=== PATIENT | female | born 1940 | race Caucasian/White ===

== ENCOUNTER 2017-07-12 15:20 | Inpatient (IN) ==
--- NOTE | 2017-07-12 17:59 | Internal Med History&Physical ---
Date of Encounter: 07/12/17 Time of Encounter: 17:56 Assessment and Plan (1) NSTEMI (non-ST elevated myocardial infarction) Current visit: Yes Status: Acute Patient this just pain-free now. There is a possibility that patient may have full of heparin drip according to paramedics since the bag was empty and was not placed on a infusion pump. So I will hold off getting any antiplatelet or anticoagulant medications for now until checking PTT. Will start patient on beta blockers Statin. Cardiology consultation. Repeat EKG shows no ST-segment shift. Patient shows no signs of bleeding. Neurologically intact Internal Medicine - H&P: HPI Chief complaint: chest pain History of present illness: Ms. Ivy is a 76 year old female with no history of coronary artery disease presents to the emergency room with a complaining of chest pain. Patient mentioned that approximately 10 AM she developed an episode of retrosternal chest pain radiating to urge all associated with profuse sweating lightheadedness nausea. These symptom lasted for approximately 2 hours. She attempted to come to our emergency room however she had to walk a long way from the [facility] to the ER she could not do so her friends to cover to an outside emergency room. Patient was chest pain free during my interview. Patient denies any cough expectoration fever chills. No prior cardiac history Past Med Surg Social Fam HX - Past Medical History Medical history: other (denies any medical history) Psychiatric history: no psych history - Past Surgical History Surgical History: no surgical history - Social History Smoking Status: Never smoker Smokeless Tobacco Status: No Alcohol use: none Drug use: none Internal Medicine - H&P: Meds Azithromycin [Azithromycin 6-Tab Pack] 250 mg PO DAILY #6 tab 09/08/15 [Rx] DiphenhydraMINE [Benadryl] 25 mg PO Q6HR #20 capsule 09/08/15 [Rx] methylPREDNISolone [Medrol] 4 mg PO DAILY 7 Days tablet 09/08/15 [Rx] Mupirocin [Bactroban Oint] 1 appl TP BID #1 tube 12/06/15 [Rx] Sulfamethoxazole/Trimeth DS [Bactrim DS] 1 each PO BID #14 tablet 12/06/15 [Rx] traMADol [Ultram] 50 mg PO QID PRN #16 tablet 12/06/15 [Rx] Albuterol Neb [AccuNeb] 1.25 mg IH Q6H PRN #50 units 06/17/16 [Rx] Amoxicillin [Amoxil] 500 mg PO TID #30 capsule 06/17/16 [Rx] Ipratropium Neb [Atrovent Neb] 0.5 mg IH Q6HR PRN #50 vial.neb 06/17/16 [Rx] Nebulizer Accessories [Pillow Mask] 1 each MC PRN PRN #1 each 06/17/16 [Rx] Promethazine/Dextromethorphan [Promethazine-Dm Syrup] 5 ml PO Q4H PRN #120 ml [Rx] predniSONE [Prednisone] 20 mg PO DAILY #5 tablet 06/17/16 [Rx] Nitrofurantoin Monohyd/M-Cryst [Macrobid 100 mg Capsule] 100 mg PO BID #10 capsule 06/02/17 [Rx] Phenazopyridine HCl [Pyridium] 200 mg PO TIDAC #6 tab 06/02/17 [Rx] 3 Allergy/AdvReac Type Severity Reaction Status Date / Time Sulfa (Sulfonamide Allergy Rash Verified 12/10/15 13:03 Antibiotics) All Systems PM: A 10-system review of systems was performed and is negative for pertinent findings except as documented above in the HPI. Review of systems: 10 point review of systems is negative except for HPI - Constitutional Vitals: Temp Pulse Resp BP Pulse Ox 98.3 F 80 16 162/78 96 07/12/17 17:22 07/12/17 17:22 07/12/17 17:22 07/12/17 17:22 07/12/17 17:22 Exam: Gen.: patient is alert oriented times 3 cardiac: normal S1 S2 no additional sounds or murmurs chest: no active wheezing or bronchial breathing abdomen soft nontender nondistended normal bowel sounds lower extremity no swelling. Neuro: no new focal deficits
[2017-07-12 19:14] LABS: Activated Partial Thrombo Time > 360.0 Seconds (26.0-36.0)
[2017-07-12 19:26] LABS: Heparin anti-factor XA UFH 4.67 IU/mL (0.30-0.70)
--- NOTE | 2017-07-12 19:30 | Discharge Summary ---
Date of Encounter: 07/12/17 Time of Encounter: 19:28 - Discharge Diagnosis (1) NSTEMI (non-ST elevated myocardial infarction) Priority: Primary Status: Acute Comments: NSTEMI type 1 due to demand ischemia - Discharge Medications Home Medications: Azithromycin [Azithromycin 6-Tab Pack] 250 mg PO DAILY #6 tab 09/08/15 [Rx] DiphenhydraMINE [Benadryl] 25 mg PO Q6HR #20 capsule 09/08/15 [Rx] methylPREDNISolone [Medrol] 4 mg PO DAILY 7 Days tablet 09/08/15 [Rx] Mupirocin [Bactroban Oint] 1 appl TP BID #1 tube 12/06/15 [Rx] Sulfamethoxazole/Trimeth DS [Bactrim DS] 1 each PO BID #14 tablet 12/06/15 [Rx] traMADol [Ultram] 50 mg PO QID PRN #16 tablet 12/06/15 [Rx] Albuterol Neb [AccuNeb] 1.25 mg IH Q6H PRN #50 units 06/17/16 [Rx] Amoxicillin [Amoxil] 500 mg PO TID #30 capsule 06/17/16 [Rx] Ipratropium Neb [Atrovent Neb] 0.5 mg IH Q6HR PRN #50 vial.neb 06/17/16 [Rx] Nebulizer Accessories [Pillow Mask] 1 each MC PRN PRN #1 each 06/17/16 [Rx] Promethazine/Dextromethorphan [Promethazine-Dm Syrup] 5 ml PO Q4H PRN #120 ml [Rx] predniSONE [Prednisone] 20 mg PO DAILY #5 tablet 06/17/16 [Rx] Nitrofurantoin Monohyd/M-Cryst [Macrobid 100 mg Capsule] 100 mg PO BID #10 capsule 06/02/17 [Rx] Phenazopyridine HCl [Pyridium] 200 mg PO TIDAC #6 tab 06/02/17 [Rx] Allergies/Adverse Reactions: 3 Allergy/AdvReac Type Severity Reaction Status Date / Time Sulfa (Sulfonamide Allergy Rash Verified 12/10/15 13:03 Antibiotics) Procedures/tests Complete & Pending: Procedures Performed prior 72 hours Category Date Time Status EKG [ECG 12 lead ECG] [ECG] Stat Y 07/12/17 17:17 Ordered EV echocardiogram Routine Y 07/12/17 17:55 Ordered Date of admission: 07/12/17 16:52 Primary care physician: Elle Hall Consults: 07/12/17 17:48 Consult to Cardiology [CONS] Routine Comment: Consulting Provider: Gregg Massey Reason for Consult: NSTEMI Call Completed: Yes - Patient Status Disposition: Left Against Medical Advice - Discharge Instructions Follow Up With: Elle Hall MD [Primary Care Provider] - Interval History: Ms. Ivy is a 76 year old female with no history of coronary artery disease presents to the emergency room with a complaining of chest pain. Patient mentioned that approximately 10 AM she developed an episode of retrosternal chest pain radiating to urge all associated with profuse sweating lightheadedness nausea. These symptom lasted for approximately 2 hours. She attempted to come to our emergency room however she had to walk a long way from the garage to the ER she could not do so her friends to cover to an outside emergency room. Patient was chest pain free during my interview. Patient denies any cough expectoration fever chills. No prior cardiac history I was called by the nurse is the patient wanted to leave against medical advice. I discussed with the patient that she had probably received duffel bag (about 25,000 units. Her PTT was more than 360 and she is aware of that. I discussed with her the risk of bleeding, even spontaneously. Patient insisted that she wants to leave. I gave her the option of transfer to another facility and she still refused. Patient signed against medical advice. Hospital course: Ms. Ivy is a 76 year old female - Time Spent with Patient Total time spent providing and/or coordinating discharge services: - Constitutional Vitals: Temp Pulse Resp BP Pulse Ox 98.3 F 80 16 162/78 96 07/12/17 17:22 07/12/17 17:22 07/12/17 17:22 07/12/17 17:22 07/12/17 17:22 Exam: I was unable to examine the patient on discharge.
== END 2017-07-12 19:20 | disposition left against medical advice (07) | DRG 282 ==
LOC: 2NENU
PROVIDERS: ADMIT Hospitalist; ATTEND Internal Medicine

== ENCOUNTER 2020-10-25 22:15 | Inpatient (IN) ==
[2020-10-25] MEDS ORDERED: Isovue-370 500 ML BOTTLE IVP ONE (22:23)
[2020-10-25 22:35] LABS: Basophils % 0.3 %; Eosinophils # 0.1 K/mcL (0.0-0.6); Eosinophils % 0.9 %; Hematocrit 37.4 % (35.3-44.9); Hemoglobin 12.2 g/dL (11.5-15.4); Immature Granulocytes % 0.5 % (0-4); Lymphocytes % 19.4 %; Mean Corpuscular HGB Conc 32.6 g/dL (31.6-35.5); Mean Corpuscular Hemoglobin 30.6 pg (28.0-33.3); Mean Corpuscular Volume 93.7 fL (83.0-100.0); Mean Platelet Volume 9.3 fL (9.4-12.4); Monocytes # 0.6 K/mcL (0.0-1.3); Monocytes % 6.2 %; Neutrophils # 7.5 K/mcL (1.6-8.9); Platelet Count 264 K/mcL (140-400); Red Blood Count 3.99 M/mcL (3.82-4.97); Segmented Neutrophils % 72.7 %; White Blood Count 10.2 K/mcL (4.3-11.1)
[2020-10-25 22:58] LABS: Alanine Aminotransferase 12 Units/L (7-52); Albumin 3.9 g/dL (3.5-5.7); Albumin/Globulin Ratio 1.2 (1.1-2.2); Alkaline Phosphatase 76 Units/L (34-104); Aspartate Amino Transferase 16 Units/L (13-39); BUN/Creatinine Ratio 15 (6-26); Bilirubin,Direct 0.1 mg/dL (0.0-0.2); Bilirubin,Indirect 0.6 mg/dL (0.0-1.0); Bilirubin,Total 0.7 mg/dL (0.3-1.0); Blood Urea Nitrogen 11 mg/dL (8-23); Calcium 9.2 mg/dL (8.6-10.3); Carbon Dioxide 27 mEq/L (23-29); Chloride 102 mEq/L (98-107); Globulin 3.3 g/dL (2.4-3.5); Glucose 121 mg/dL (70-105); Lipase 12 Units/L (11-82); Osmolality,Calculated 283 (280-300); Potassium 3.6 mEq/L (3.5-5.1); Sodium 136 mEq/L (136-145); Total Protein 7.2 g/dL (6.4-8.9); eGFR For African Americans > 60 (> 60); eGFR For Non-African Americans > 60 (> 60)
[2020-10-25 23:44] LABS: Bilirubin,Urine Negative (Negative); Blood,Urine Negative (Negative); Clarity,Urine Clear (Clear); Color,Urine Colorless (Yellow); Glucose,Urine (UA) Normal (Normal); Ketones,Urine Negative (Negative); Leukocyte Esterase,Urine Moderate (Negative); Mucus,Urine Few per lpf (None-Few); Nitrite,Urine Negative (Negative); Protein,Urine Negative (Neg-Trace); RBC,Urine 0-3 per hpf (0-3); Specific Gravity,Urine 1.019 (1.010-1.025); Urobilinogen,Urine Normal (Normal)
[2020-10-26] MEDS ORDERED: cefTRIAXone 1,000 MG in 0.9 % Sodium Chloride Mini Bag 100 ML IVPB ONE (00:19)
[2020-10-26] MEDS ORDERED: Ondansetron 4 MG/2 ML VIAL IVP PRN (00:35)
[2020-10-26] MEDS ORDERED: Acetaminophen 325 MG TABLET PO PRN (00:35)
[2020-10-26] MEDS ORDERED: *HR* HYDROcodone/Acet 5/325 mg TABLET PO PRN (00:35)
[2020-10-26] MEDS ORDERED: Naloxone 0.4 MG/ML INJ IVP PRN (00:35)
[2020-10-26] MEDS: Sennosides/Docusate Sodium TABLET PO SCH ×3 (02:12→20:00)
[2020-10-26] MEDS: Ringers Solution, Lactated 1,000 ML IVC SCH ×2 (02:12→09:22)
[2020-10-26] MEDS ORDERED: Gabapentin 100 MG CAPSULE PO ONE (02:18)
[2020-10-26 03:42] LABS: Basophils % 0.3 %; Eosinophils % 0.3 %; Hematocrit 39.7 % (35.3-44.9); Hemoglobin 12.7 g/dL (11.5-15.4); Immature Granulocytes % 0.4 % (0-4); Lymphocytes # 1.9 K/mcL (0.6-4.6); Lymphocytes % 16.9 %; Mean Corpuscular Volume 93.9 fL (83.0-100.0); Mean Platelet Volume 9.5 fL (9.4-12.4); Monocytes # 0.7 K/mcL (0.0-1.3); Monocytes % 5.7 %; Neutrophils # 8.8 K/mcL (1.6-8.9); Platelet Count 295 K/mcL (140-400); Red Blood Count 4.23 M/mcL (3.82-4.97); Red Cell Distribution Width 14.2 % (11.5-14.5); Segmented Neutrophils % 76.4 %; White Blood Count 11.5 K/mcL (4.3-11.1)
[2020-10-26 04:04] LABS: BUN/Creatinine Ratio 13 (6-26); Blood Urea Nitrogen 9 mg/dL (8-23); Calcium 9.3 mg/dL (8.6-10.3); Carbon Dioxide 27 mEq/L (23-29); Chloride 101 mEq/L (98-107); Chol/HDL Ratio 2.8 (0-4.9); Cholesterol 153 mg/dL (< 200); Glucose 120 mg/dL (70-105); HDL Cholesterol 55 mg/dL (40-59); LDL Cholesterol,Calculated 89 mg/dL (< 100); Osmolality,Calculated 284 (280-300); Potassium 3.7 mEq/L (3.5-5.1); Sodium 137 mEq/L (136-145); Triglycerides 44 mg/dL (< 150); eGFR For African Americans > 60 (> 60); eGFR For Non-African Americans > 60 (> 60)
[2020-10-26 04:14] LABS: Thyroid Stimulating Hormone 2.137 mcIU/mL (0.340-5.600)
[2020-10-26] MEDS: Cyanocobalamin (B-12) 1,000 MCG/ML VIAL SQ SCH (15:10)
[2020-10-27 05:54] LABS: Basophils # 0.1 K/mcL (0.0-0.2); Basophils % 0.5 %; Eosinophils # 0.1 K/mcL (0.0-0.6); Eosinophils % 1.3 %; Hematocrit 37.2 % (35.3-44.9); Hemoglobin 12.1 g/dL (11.5-15.4); Immature Granulocytes % 0.4 % (0-4); Lymphocytes % 21.3 %; Mean Corpuscular HGB Conc 32.5 g/dL (31.6-35.5); Mean Corpuscular Hemoglobin 30.4 pg (28.0-33.3); Mean Corpuscular Volume 93.5 fL (83.0-100.0); Mean Platelet Volume 9.8 fL (9.4-12.4); Monocytes # 0.6 K/mcL (0.0-1.3); Monocytes % 6.4 %; Neutrophils # 6.5 K/mcL (1.6-8.9); Platelet Count 280 K/mcL (140-400); Red Blood Count 3.98 M/mcL (3.82-4.97); Red Cell Distribution Width 13.9 % (11.5-14.5); Segmented Neutrophils % 70.1 %; White Blood Count 9.3 K/mcL (4.3-11.1)
[2020-10-27 05:56] LABS: BUN/Creatinine Ratio 13 (6-26); Blood Urea Nitrogen 9 mg/dL (8-23); Calcium 9.3 mg/dL (8.6-10.3); Carbon Dioxide 26 mEq/L (23-29); Chloride 100 mEq/L (98-107); Glucose 113 mg/dL (70-105); Osmolality,Calculated 277 (280-300); Potassium 3.8 mEq/L (3.5-5.1); Sodium 134 mEq/L (136-145); eGFR For African Americans > 60 (> 60); eGFR For Non-African Americans > 60 (> 60)
[2020-10-27] MEDS: Cyanocobalamin (B-12) 1,000 MCG/ML VIAL SQ SCH (08:40)
[2020-10-27] MEDS: Sennosides/Docusate Sodium TABLET PO SCH (08:40)
[2020-10-27 10:56] VITALS: BP 135/70
== END 2020-10-27 14:40 | disposition home or self-care (01) | DRG 552 ==
LOC: EMEROOARM 22:15 → 3NENU 22:15 → SUATTDRO 10-26 00:49 → 3NENU 10-26 01:32 → 3ANU 10-26 06:39
PROVIDERS: ADMIT Internal Medicine; ATTEND Internal Medicine

== ENCOUNTER 2020-10-31 23:53 | Inpatient (IN) ==
[2020-11-01] MEDS ORDERED: *HR* FentaNYL (PF) 100 MCG/2 ML VIAL IVP ONE ×2 (01:59→06:49)
[2020-11-01 03:29] LABS: BUN/Creatinine Ratio 11 (6-26); Blood Urea Nitrogen 7 mg/dL (8-23); Calcium 9.2 mg/dL (8.6-10.3); Carbon Dioxide 28 mEq/L (23-29); Chloride 101 mEq/L (98-107); Glucose 115 mg/dL (70-105); Osmolality,Calculated 281 (280-300); Potassium 3.6 mEq/L (3.5-5.1); Sodium 136 mEq/L (136-145); eGFR For African Americans > 60 (> 60); eGFR For Non-African Americans > 60 (> 60)
[2020-11-01 05:11] LABS: Basophils % 0.4 %; Eosinophils # 0.1 K/mcL (0.0-0.6); Eosinophils % 0.8 %; Hematocrit 37.2 % (35.3-44.9); Hemoglobin 11.9 g/dL (11.5-15.4); Immature Granulocytes % 0.4 % (0-4); Lymphocytes # 2.4 K/mcL (0.6-4.6); Lymphocytes % 21.6 %; Mean Corpuscular Hemoglobin 30.4 pg (28.0-33.3); Mean Corpuscular Volume 94.9 fL (83.0-100.0); Mean Platelet Volume 9.7 fL (9.4-12.4); Monocytes # 0.8 K/mcL (0.0-1.3); Monocytes % 6.9 %; Neutrophils # 7.8 K/mcL (1.6-8.9); Platelet Count 280 K/mcL (140-400); Red Blood Count 3.92 M/mcL (3.82-4.97); Red Cell Distribution Width 13.8 % (11.5-14.5); Segmented Neutrophils % 69.9 %; White Blood Count 11.1 K/mcL (4.3-11.1)
[2020-11-01 05:39] LABS: Bacteria,Urine Few per hpf (None-Few); Bilirubin,Urine Negative (Negative); Blood,Urine Negative (Negative); Clarity,Urine Clear (Clear); Color,Urine Light-Yellow (Yellow); Glucose,Urine (UA) Normal (Normal); Ketones,Urine Negative (Negative); Leukocyte Esterase,Urine Trace (Negative); Mucus,Urine Few per lpf (None-Few); Nitrite,Urine Negative (Negative); PH,Urine 6.5 pH Units (5.0-8.0); Protein,Urine Negative (Neg-Trace); RBC,Urine 0-3 per hpf (0-3); Specific Gravity,Urine 1.011 (1.010-1.025); Squamous Epithelial Cell,Urine Few per hpf (None-Few)
[2020-11-01] MEDS ORDERED: Naloxone 0.4 MG/ML INJ IVP PRN (08:23)
[2020-11-01] MEDS ORDERED: Acetaminophen 325 MG TABLET PO PRN (08:23)
[2020-11-01] MEDS ORDERED: Sennosides/Docusate Sodium TABLET PO PRN (08:27)
[2020-11-01] MEDS ORDERED: Haloperidol Lactate 5 MG/ML VIAL IVP ONE (17:53)
[2020-11-01] MEDS ORDERED: Ketorolac 30 MG/ML VIAL IVP ONE (18:12)
[2020-11-01] MEDS: *HR* Heparin 5,000 UNIT/ML VIAL SQ SCH (18:43)
[2020-11-02 01:34] LABS: Hematocrit 36.9 % (35.3-44.9); Hemoglobin 12.1 g/dL (11.5-15.4); Mean Corpuscular HGB Conc 32.8 g/dL (31.6-35.5); Mean Corpuscular Hemoglobin 30.5 pg (28.0-33.3); Mean Corpuscular Volume 92.9 fL (83.0-100.0); Mean Platelet Volume 9.5 fL (9.4-12.4); Platelet Count 250 K/mcL (140-400); Red Blood Count 3.97 M/mcL (3.82-4.97); Red Cell Distribution Width 13.7 % (11.5-14.5); White Blood Count 8.1 K/mcL (4.3-11.1)
[2020-11-02 01:57] LABS: BUN/Creatinine Ratio 17 (6-26); Blood Urea Nitrogen 11 mg/dL (8-23); Calcium 8.7 mg/dL (8.6-10.3); Carbon Dioxide 29 mEq/L (23-29); Chloride 101 mEq/L (98-107); Glucose 107 mg/dL (70-105); Osmolality,Calculated 282 (280-300); Potassium 3.7 mEq/L (3.5-5.1); Sodium 136 mEq/L (136-145); eGFR For African Americans > 60 (> 60); eGFR For Non-African Americans > 60 (> 60)
[2020-11-02] MEDS: *HR* Heparin 5,000 UNIT/ML VIAL SQ SCH (05:31)
[2020-11-02] MEDS ORDERED: Baclofen 10 MG TABLET PO PRN (09:07)
[2020-11-02 11:30] VITALS: BP 125/69
[2020-11-03] MEDS ORDERED: Cyanocobalamin (B-12) 1,000 MCG TABLET PO SCH (09:00)
== END 2020-11-02 15:00 | disposition left against medical advice (07) | DRG 552 ==
LOC: 2ANU 23:53 → EMEROOARM 23:53 → 2ANU 11-01 08:30 → SUATTDRO 11-01 09:42
PROVIDERS: ADMIT Internal Medicine; ATTEND General Practice

== ENCOUNTER 2022-01-23 09:33 | Observation (INO) ==
[2022-01-23 11:25] LABS: Basophils % 0.2 %; Eosinophils % 0.2 %; Hematocrit 36.2 % (35.3-44.9); Immature Granulocytes % 0.3 % (0-4); Lymphocytes # 1.8 K/mcL (0.6-4.6); Lymphocytes % 18.1 %; Mean Corpuscular HGB Conc 33.1 g/dL (31.6-35.5); Mean Corpuscular Hemoglobin 31.4 pg (28.0-33.3); Mean Corpuscular Volume 94.8 fL (83.0-100.0); Monocytes # 0.7 K/mcL (0.0-1.3); Monocytes % 6.7 %; Neutrophils # 7.4 K/mcL (1.6-8.9); Platelet Count 241 K/mcL (140-400); Red Blood Count 3.82 M/mcL (3.82-4.97); Red Cell Distribution Width 14.6 % (11.5-14.5); Segmented Neutrophils % 74.5 %
[2022-01-23] MEDS ORDERED: Furosemide 40 MG/4 ML VIAL IVP ONE (11:35)
[2022-01-23] MEDS ORDERED: Nitroglycerin 0.4 MG TAB.SUBL SL STA (11:35)
[2022-01-23 11:59] LABS: BUN/Creatinine Ratio 13 (6-26); Blood Urea Nitrogen 10 mg/dL (8-23); Calcium 8.8 mg/dL (8.6-10.3); Carbon Dioxide 27 mEq/L (23-29); Chloride 102 mEq/L (98-107); Glucose 112 mg/dL (70-105); Osmolality,Calculated 282 (280-300); Potassium 3.6 mEq/L (3.5-5.1); Sodium 136 mEq/L (136-145); Troponin I 0.05 ng/mL (< 0.04); eGFR For African Americans > 60 (> 60); eGFR For Non-African Americans > 60 (> 60)
[2022-01-23] MEDS ORDERED: Naloxone 0.4 MG/ML INJ IVP PRN (13:13)
[2022-01-23] MEDS ORDERED: Acetaminophen 325 MG TABLET PO PRN (13:13)
[2022-01-23] MEDS ORDERED: Ondansetron 4 MG/2 ML VIAL IVP PRN (13:13)
[2022-01-23] MEDS ORDERED: Perflutren Lipid Microsphere 1.3 ML in 0.9 % Sodium Chloride 8.7 ML IVP PRN (13:21)
[2022-01-23 13:59] LABS: Influenza A PCR Negative (Negative); Influenza B PCR Negative (Negative); Resp. Syncytial Virus PCR Negative (Negative)
[2022-01-23 14:14] LABS: SARS-CoV-2 by PCR (In House) Negative (Negative)
[2022-01-23] MEDS ORDERED: Furosemide 20 MG/2 ML VIAL IVP ONE (17:00)
[2022-01-23 17:08] VITALS: BP 124/85; PULSE 78; TEMP 98; O2SAT 96
[2022-01-24] MEDS ORDERED: *HR* Enoxaparin 40 MG/0.4 ML SYRINGE SQ SCH (07:00)
[2022-01-24] MEDS ORDERED: Furosemide 40 MG/4 ML VIAL IVP SCH (09:00)
== END 2022-01-23 17:31 | disposition left against medical advice (07) ==
LOC: 2ANU 09:33 → EMEROOARM 09:33 → 2ANU 14:01
PROVIDERS: ADMIT Pharmacist; ATTEND Pharmacist

== ENCOUNTER 2022-06-06 13:48 | Inpatient (IN) ==
[2022-06-06 14:56] LABS: Basophils % 0.2 %; Eosinophils % 0.3 %; Hematocrit 40.4 % (35.3-44.9); Hemoglobin 13.1 g/dL (11.5-15.4); Immature Granulocytes % 0.4 % (0-4); Lymphocytes # 1.4 K/mcL (0.6-4.6); Lymphocytes % 12.9 %; Mean Corpuscular HGB Conc 32.4 g/dL (31.6-35.5); Mean Corpuscular Hemoglobin 31.6 pg (28.0-33.3); Mean Corpuscular Volume 97.6 fL (83.0-100.0); Mean Platelet Volume 10.2 fL (9.4-12.4); Monocytes # 0.6 K/mcL (0.0-1.3); Neutrophils # 8.5 K/mcL (1.6-8.9); Platelet Count 248 K/mcL (140-400); Red Blood Count 4.14 M/mcL (3.82-4.97); Red Cell Distribution Width 16.2 % (11.5-14.5); Segmented Neutrophils % 80.2 %; White Blood Count 10.6 K/mcL (4.3-11.1)
[2022-06-06 15:17] LABS: Calcium 9.4 mg/dL (8.6-10.3); Potassium 3.5 mEq/L (3.5-5.1)
[2022-06-06 15:18] LABS: Bacteria,Urine Few per hpf (None-Few); Bilirubin,Urine Negative (Negative); Blood,Urine Negative (Negative); Clarity,Urine Clear (Clear); Color,Urine Yellow (Yellow); Glucose,Urine (UA) Normal (Normal); Granular Casts,Urine Few per lpf (None Seen); Hyaline Casts,Urine Many per lpf (None Seen); Ketones,Urine Negative (Negative); Leukocyte Esterase,Urine Large (Negative); Mucus,Urine Few per lpf (None-Few); Nitrite,Urine Negative (Negative); Protein,Urine 100 mg/dL (Neg-Trace); RBC,Urine 0-3 per hpf (0-3); Renal Epithelial Cells,Urine Few per hpf (None-Few); Squamous Epithelial Cell,Urine Few per hpf (None-Few); Transitional Epi Cells,Urine Few per hpf (None-Few); Urobilinogen,Urine Normal (Normal); WBC,Urine 30-50 per hpf (0-3)
[2022-06-06 15:37] LABS: Troponin I 0.38 ng/mL (< 0.04)
[2022-06-06] MEDS ORDERED: cefTRIAXone 1,000 MG in 0.9 % Sodium Chloride 10 ML IVP ONE (16:11)
[2022-06-06] MEDS ORDERED: Iopamidol - 370 500 ML MLS IVP ONE (16:17)
[2022-06-06] MEDS ORDERED: Ondansetron ODT 4 MG TAB.RAPDIS SL PRN (17:01)
[2022-06-06] MEDS ORDERED: Naloxone 0.4 MG/ML INJ IVP PRN (17:01)
[2022-06-06] MEDS ORDERED: Acetaminophen 325 MG TABLET PO PRN (17:01)
[2022-06-06] MEDS: Furosemide 40 MG/4 ML VIAL IVP SCH (23:13)
[2022-06-07 04:11] LABS: Basophils % 0.3 %; Eosinophils # 0.1 K/mcL (0.0-0.6); Hemoglobin 12.8 g/dL (11.5-15.4); Immature Granulocytes % 0.3 % (0-4); Lymphocytes # 1.3 K/mcL (0.6-4.6); Lymphocytes % 12.4 %; Mean Corpuscular HGB Conc 32.8 g/dL (31.6-35.5); Mean Corpuscular Hemoglobin 31.7 pg (28.0-33.3); Mean Corpuscular Volume 96.5 fL (83.0-100.0); Mean Platelet Volume 10.4 fL (9.4-12.4); Monocytes # 0.6 K/mcL (0.0-1.3); Monocytes % 5.6 %; Neutrophils # 8.1 K/mcL (1.6-8.9); Platelet Count 259 K/mcL (140-400); Red Blood Count 4.04 M/mcL (3.82-4.97); Red Cell Distribution Width 16.2 % (11.5-14.5); Segmented Neutrophils % 80.4 %; White Blood Count 10.1 K/mcL (4.3-11.1)
[2022-06-07 04:26] LABS: Calcium 9.3 mg/dL (8.6-10.3); Potassium 3.5 mEq/L (3.5-5.1)
[2022-06-07 04:36] LABS: Troponin I 0.25 ng/mL (< 0.04)
[2022-06-07] MEDS ORDERED: *HR* Heparin 5,000 UNIT/ML VIAL IVP PRN ×2 (08:19)
[2022-06-07] MEDS ORDERED: *HR* Heparin 5,000 UNIT/ML VIAL IVP ONE (08:19)
[2022-06-07 10:37] LABS: Heparin anti-factor XA UFH < 0.04 IU/mL (0.30-0.70); INR 1.4; Prothrombin Time 15.4 Seconds (9.4-12.1)
[2022-06-07] MEDS: Furosemide 40 MG/4 ML VIAL IVP SCH ×2 (10:44→16:55)
[2022-06-07] MEDS: Heparin 25,000UNIT/250ML 1/2NS 25,000 UNIT/250 ML IV.SOLN IVC SCH (10:46)
[2022-06-07] MEDS: cefTRIAXone 1,000 MG in 0.9 % Sodium Chloride 10 ML IVP SCH (13:46)
[2022-06-07] MEDS ORDERED: 0.9 % Sodium Chloride 500 ML IVC ONE (22:22)
[2022-06-08 01:32] LABS: Basophils # 0.1 K/mcL (0.0-0.2); Basophils % 0.5 %; Eosinophils # 0.3 K/mcL (0.0-0.6); Eosinophils % 2.4 %; Hematocrit 40.1 % (35.3-44.9); Immature Granulocytes % 0.4 % (0-4); Lymphocytes # 1.9 K/mcL (0.6-4.6); Lymphocytes % 16.8 %; Mean Corpuscular HGB Conc 32.4 g/dL (31.6-35.5); Mean Corpuscular Hemoglobin 31.5 pg (28.0-33.3); Mean Corpuscular Volume 97.1 fL (83.0-100.0); Mean Platelet Volume 10.5 fL (9.4-12.4); Monocytes # 0.7 K/mcL (0.0-1.3); Monocytes % 5.9 %; Neutrophils # 8.2 K/mcL (1.6-8.9); Platelet Count 243 K/mcL (140-400); Red Blood Count 4.13 M/mcL (3.82-4.97)
[2022-06-08 01:50] LABS: Calcium 8.6 mg/dL (8.6-10.3); Potassium 3.1 mEq/L (3.5-5.1)
[2022-06-08] MEDS ORDERED: Furosemide 40 MG TABLET PO SCH (08:00)
[2022-06-08] MEDS: cefTRIAXone 1,000 MG in 0.9 % Sodium Chloride 10 ML IVP SCH (10:30)
[2022-06-08] MEDS: Heparin 25,000UNIT/250ML 1/2NS 25,000 UNIT/250 ML IV.SOLN IVC SCH (12:05)
[2022-06-08] MEDS: Sennosides/Docusate Sodium TABLET PO PRN ×2 (15:08→21:42)
[2022-06-08] MEDS: polyethylene glycoL 3350 17 GM POWD.PACK PO SCH (15:08)
[2022-06-08] MEDS: Furosemide 40 MG/4 ML VIAL IVP SCH (18:02)
[2022-06-08] MEDS: Melatonin 3 MG TABLET PO PRN (21:42)
[2022-06-09 04:29] LABS: Basophils % 0.3 %; Eosinophils # 0.2 K/mcL (0.0-0.6); Eosinophils % 1.6 %; Hematocrit 39.2 % (35.3-44.9); Hemoglobin 12.7 g/dL (11.5-15.4); Immature Granulocytes % 0.3 % (0-4); Lymphocytes # 1.2 K/mcL (0.6-4.6); Lymphocytes % 13.4 %; Mean Corpuscular HGB Conc 32.4 g/dL (31.6-35.5); Mean Corpuscular Hemoglobin 31.1 pg (28.0-33.3); Mean Corpuscular Volume 96.1 fL (83.0-100.0); Mean Platelet Volume 10.4 fL (9.4-12.4); Monocytes # 0.6 K/mcL (0.0-1.3); Monocytes % 5.9 %; Neutrophils # 7.3 K/mcL (1.6-8.9); Platelet Count 219 K/mcL (140-400); Red Blood Count 4.08 M/mcL (3.82-4.97); Segmented Neutrophils % 78.5 %; White Blood Count 9.3 K/mcL (4.3-11.1)
[2022-06-09 04:49] LABS: Calcium 8.6 mg/dL (8.6-10.3); Potassium 3.2 mEq/L (3.5-5.1)
[2022-06-09] MEDS: cephALEXin 500 MG CAPSULE PO SCH ×2 (09:45→21:55)
[2022-06-09] MEDS: polyethylene glycoL 3350 17 GM POWD.PACK PO SCH (09:45)
[2022-06-09] MEDS: Furosemide 40 MG/4 ML VIAL IVP SCH ×2 (09:59→19:06)
[2022-06-09] MEDS: Heparin 25,000UNIT/250ML 1/2NS 25,000 UNIT/250 ML IV.SOLN IVC SCH (16:06)
[2022-06-09] MEDS: *HR* HYDROcodone/Acet 5/325 mg TABLET PO PRN (16:59)
[2022-06-09] MEDS: *HR* Heparin 5,000 UNIT/ML VIAL SQ SCH (19:05)
[2022-06-09] MEDS: Melatonin 3 MG TABLET PO PRN (21:55)
[2022-06-10 02:57] LABS: Basophils # 0.1 K/mcL (0.0-0.2); Basophils % 0.6 %; Eosinophils # 0.2 K/mcL (0.0-0.6); Hematocrit 39.2 % (35.3-44.9); Hemoglobin 12.6 g/dL (11.5-15.4); Immature Granulocytes % 0.2 % (0-4); Lymphocytes # 1.2 K/mcL (0.6-4.6); Lymphocytes % 13.7 %; Mean Corpuscular HGB Conc 32.1 g/dL (31.6-35.5); Mean Corpuscular Hemoglobin 31.7 pg (28.0-33.3); Mean Corpuscular Volume 98.7 fL (83.0-100.0); Mean Platelet Volume 10.5 fL (9.4-12.4); Monocytes # 0.6 K/mcL (0.0-1.3); Monocytes % 6.6 %; Neutrophils # 6.6 K/mcL (1.6-8.9); Platelet Count 200 K/mcL (140-400); Red Blood Count 3.97 M/mcL (3.82-4.97); Red Cell Distribution Width 16.2 % (11.5-14.5); Segmented Neutrophils % 76.9 %; White Blood Count 8.5 K/mcL (4.3-11.1)
[2022-06-10] MEDS: Nystatin Cream 15 GM TUBE TP SCH ×4 (03:13→21:34)
[2022-06-10 03:17] LABS: Calcium 8.9 mg/dL (8.6-10.3); Potassium 3.9 mEq/L (3.5-5.1)
[2022-06-10] MEDS: *HR* Heparin 5,000 UNIT/ML VIAL SQ SCH ×2 (06:47→18:06)
[2022-06-10] MEDS: cephALEXin 500 MG CAPSULE PO SCH ×2 (09:47→20:32)
[2022-06-10] MEDS: Aspirin Enteric Coated 81 MG Tablet PO SCH (09:47)
[2022-06-10] MEDS: polyethylene glycoL 3350 17 GM POWD.PACK PO SCH (09:48)
[2022-06-10] MEDS: Metoprolol XL (24 HR) Succ 25 MG TAB.ER.24H PO SCH (17:14)
[2022-06-10] MEDS: Furosemide 40 MG/4 ML VIAL IVP SCH (17:15)
[2022-06-10] MEDS: Albumin 25% 25gram/100mL 25 GM/100 ML IV.SOLN IVPB SCH ×2 (17:15→20:32)
[2022-06-10] MEDS: Sennosides/Docusate Sodium TABLET PO PRN (20:32)
[2022-06-10] MEDS: Melatonin 3 MG TABLET PO PRN (20:32)
[2022-06-10] MEDS: *HR* HYDROcodone/Acet 5/325 mg TABLET PO PRN (21:34)
[2022-06-11] MEDS: Albumin 25% 25gram/100mL 25 GM/100 ML IV.SOLN IVPB SCH ×3 (04:54→20:58)
[2022-06-11] MEDS: *HR* Heparin 5,000 UNIT/ML VIAL SQ SCH ×2 (04:55→17:58)
[2022-06-11] MEDS: polyethylene glycoL 3350 17 GM POWD.PACK PO SCH (07:58)
[2022-06-11] MEDS: Aspirin Enteric Coated 81 MG Tablet PO SCH (08:00)
[2022-06-11] MEDS: Furosemide 40 MG/4 ML VIAL IVP SCH (08:01)
[2022-06-11] MEDS: Nystatin Cream 15 GM TUBE TP SCH ×3 (08:01→20:58)
[2022-06-11 08:06] LABS: Basophils % 0.4 %; Eosinophils # 0.2 K/mcL (0.0-0.6); Eosinophils % 2.2 %; Hematocrit 38.7 % (35.3-44.9); Hemoglobin 12.5 g/dL (11.5-15.4); Immature Granulocytes % 0.2 % (0-4); Lymphocytes # 1.2 K/mcL (0.6-4.6); Lymphocytes % 12.5 %; Mean Corpuscular HGB Conc 32.3 g/dL (31.6-35.5); Mean Corpuscular Hemoglobin 32.1 pg (28.0-33.3); Mean Corpuscular Volume 99.5 fL (83.0-100.0); Mean Platelet Volume 10.5 fL (9.4-12.4); Monocytes # 0.6 K/mcL (0.0-1.3); Monocytes % 6.1 %; Neutrophils # 7.4 K/mcL (1.6-8.9); Platelet Count 169 K/mcL (140-400); Red Blood Count 3.89 M/mcL (3.82-4.97); Red Cell Distribution Width 15.9 % (11.5-14.5); Segmented Neutrophils % 78.6 %; White Blood Count 9.4 K/mcL (4.3-11.1)
[2022-06-11 08:28] LABS: Calcium 9.6 mg/dL (8.6-10.3); Potassium 4.9 mEq/L (3.5-5.1)
[2022-06-11] MEDS: Metoprolol XL (24 HR) Succ 25 MG TAB.ER.24H PO SCH (12:04)
[2022-06-12] MEDS: *HR* HYDROcodone/Acet 5/325 mg TABLET PO PRN ×3 (00:29→20:35)
[2022-06-12] MEDS ORDERED: Haloperidol Lactate 5 MG/ML VIAL IVP ONE ×2 (01:30→04:19)
[2022-06-12 02:54] LABS: Basophils % 0.3 %; Eosinophils # 0.1 K/mcL (0.0-0.6); Eosinophils % 1.3 %; Hematocrit 41.5 % (35.3-44.9); Hemoglobin 13.3 g/dL (11.5-15.4); Immature Granulocytes % 0.3 % (0-4); Lymphocytes # 1.4 K/mcL (0.6-4.6); Lymphocytes % 13.7 %; Mean Corpuscular Hemoglobin 31.5 pg (28.0-33.3); Mean Corpuscular Volume 98.3 fL (83.0-100.0); Mean Platelet Volume 10.9 fL (9.4-12.4); Monocytes # 0.5 K/mcL (0.0-1.3); Monocytes % 5.2 %; Platelet Count 185 K/mcL (140-400); Red Blood Count 4.22 M/mcL (3.82-4.97); Red Cell Distribution Width 15.9 % (11.5-14.5); Segmented Neutrophils % 79.2 %
[2022-06-12 02:59] LABS: Calcium 9.6 mg/dL (8.6-10.3); Magnesium 1.8 mg/dL (1.6-2.6); Potassium 5.1 mEq/L (3.5-5.1)
[2022-06-12] MEDS: Melatonin 3 MG TABLET PO PRN ×2 (03:29→20:35)
[2022-06-12] MEDS: *HR* Heparin 5,000 UNIT/ML VIAL SQ SCH ×2 (05:30→17:11)
[2022-06-12] MEDS: Albumin 25% 25gram/100mL 25 GM/100 ML IV.SOLN IVPB SCH ×3 (05:35→16:40)
[2022-06-12] MEDS: Metoprolol XL (24 HR) Succ 25 MG TAB.ER.24H PO SCH (11:52)
[2022-06-12] MEDS: Aspirin Enteric Coated 81 MG Tablet PO SCH (11:52)
[2022-06-12] MEDS: Sennosides/Docusate Sodium TABLET PO PRN (11:52)
[2022-06-12] MEDS: Nystatin Cream 15 GM TUBE TP SCH ×3 (11:53→20:35)
[2022-06-12] MEDS: polyethylene glycoL 3350 17 GM POWD.PACK PO SCH (11:53)
[2022-06-12 19:51] LABS: ABG Base Excess -3 mEq/L (-2 to 3); ABG HCO3 23 mEq/L (21-27); ABG Oxygen Saturation 95 % (95-98); ABG PCO2 43 mmHg (35-45); ABG PH 7.33 pH Units (7.32-7.45); ABG PO2 83 mmHg (85-104); ABG TCO2 24 mEq/L (20-26)
[2022-06-12 20:19] LABS: Basophils % 0.2 %; Eosinophils % 0.1 %; Hematocrit 40.7 % (35.3-44.9); Hemoglobin 13.1 g/dL (11.5-15.4); Immature Granulocytes % 0.6 % (0-4); Lymphocytes # 0.7 K/mcL (0.6-4.6); Lymphocytes % 6.7 %; Mean Corpuscular HGB Conc 32.2 g/dL (31.6-35.5); Mean Corpuscular Volume 99.3 fL (83.0-100.0); Mean Platelet Volume 10.8 fL (9.4-12.4); Monocytes # 0.7 K/mcL (0.0-1.3); Monocytes % 6.2 %; Neutrophils # 9.4 K/mcL (1.6-8.9); Platelet Count 177 K/mcL (140-400); Red Cell Distribution Width 15.8 % (11.5-14.5); Segmented Neutrophils % 86.2 %; White Blood Count 10.9 K/mcL (4.3-11.1)
[2022-06-12 20:37] LABS: Albumin 4.6 g/dL (3.5-5.7); Albumin/Globulin Ratio 1.7 (1.1-2.2); Bilirubin,Total 1.6 mg/dL (0.3-1.0); Calcium 9.9 mg/dL (8.6-10.3); Globulin 2.7 g/dL (2.4-3.5); Potassium 5.1 mEq/L (3.5-5.1); Total Protein 7.3 g/dL (6.4-8.9)
[2022-06-12] MEDS ORDERED: Furosemide 20 MG/2 ML VIAL IVP ONE (22:33)
[2022-06-13] MEDS ORDERED: Albumin 25% 25gram/100mL 25 GM/100 ML IV.SOLN IVPB SCH
[2022-06-13 03:03] LABS: Influenza A PCR Negative (Negative); Influenza B PCR Negative (Negative); Resp. Syncytial Virus PCR Negative (Negative)
[2022-06-13 03:20] LABS: SARS-CoV-2 by PCR (In House) Positive (Negative)
[2022-06-13] MEDS: *HR* Heparin 5,000 UNIT/ML VIAL SQ SCH ×3 (06:09→21:40)
[2022-06-13] MEDS ORDERED: Ipratropium 1 PUFF INHALER IH ONE (07:59)
[2022-06-13] MEDS: Ipratropium 1 PUFF INHALER IH SCH ×3 (08:12→22:57)
[2022-06-13] MEDS: Sennosides/Docusate Sodium TABLET PO PRN (08:33)
[2022-06-13 08:34] LABS: Basophils % 0.1 %; Eosinophils % 0.1 %; Hemoglobin 14.5 g/dL (11.5-15.4); Immature Granulocytes % 0.5 % (0-4); Lymphocytes # 1.1 K/mcL (0.6-4.6); Lymphocytes % 8.3 %; Mean Corpuscular Volume 97.1 fL (83.0-100.0); Mean Platelet Volume 10.6 fL (9.4-12.4); Monocytes # 0.7 K/mcL (0.0-1.3); Monocytes % 5.3 %; Neutrophils # 11.7 K/mcL (1.6-8.9); Platelet Count 174 K/mcL (140-400); Red Blood Count 4.53 M/mcL (3.82-4.97); Red Cell Distribution Width 15.8 % (11.5-14.5); Segmented Neutrophils % 85.7 %; White Blood Count 13.7 K/mcL (4.3-11.1)
[2022-06-13] MEDS: Aspirin Enteric Coated 81 MG Tablet PO SCH (08:35)
[2022-06-13] MEDS: Furosemide 40 MG/4 ML VIAL IVP SCH (08:36)
[2022-06-13] MEDS: Nystatin Cream 15 GM TUBE TP SCH ×3 (08:40→21:44)
[2022-06-13] MEDS: Metoprolol XL (24 HR) Succ 25 MG TAB.ER.24H PO SCH (08:41)
[2022-06-13] MEDS: polyethylene glycoL 3350 17 GM POWD.PACK PO SCH (08:44)
[2022-06-13 09:07] LABS: Calcium 10.1 mg/dL (8.6-10.3); Magnesium 1.9 mg/dL (1.6-2.6); Potassium 5.2 mEq/L (3.5-5.1)
[2022-06-13] MEDS ORDERED: Remdesivir 200 MG in 0.9 % Sodium Chloride 100 ML IVPB ONE (10:00)
[2022-06-13] MEDS ORDERED: Azithromycin 500 MG in 0.9 % Sodium Chloride 250 ML IVPB SCH (17:00)
[2022-06-13] MEDS: cefTRIAXone 1,000 MG in 0.9 % Sodium Chloride Mini Bag 100 ML IVPB SCH (19:05)
[2022-06-13] MEDS: Azithromycin 500 MG in 0.9 % Sodium Chloride 250 ML IVPB SCH (21:41)
[2022-06-14] MEDS: Sennosides/Docusate Sodium TABLET PO PRN ×2 (03:11→07:43)
[2022-06-14] MEDS: Ipratropium 1 PUFF INHALER IH SCH ×4 (04:26→22:54)
[2022-06-14] MEDS: *HR* Heparin 5,000 UNIT/ML VIAL SQ SCH ×3 (05:17→20:16)
[2022-06-14] MEDS: Remdesivir 100 MG in 0.9 % Sodium Chloride 100 ML IVPB SCH (07:40)
[2022-06-14] MEDS: Metoprolol XL (24 HR) Succ 25 MG TAB.ER.24H PO SCH (07:43)
[2022-06-14] MEDS: Aspirin Enteric Coated 81 MG Tablet PO SCH (07:43)
[2022-06-14] MEDS: polyethylene glycoL 3350 17 GM POWD.PACK PO SCH (07:46)
[2022-06-14] MEDS: Furosemide 40 MG/4 ML VIAL IVP SCH (07:48)
[2022-06-14] MEDS: Nystatin Cream 15 GM TUBE TP SCH ×3 (08:40→20:17)
[2022-06-14] MEDS ORDERED: Bisacodyl 10 MG RECTAL SUPPOSITORY RC PRN (08:45)
[2022-06-14 09:33] LABS: Basophils % 0.2 %; Eosinophils % 0.2 %; Hematocrit 39.2 % (35.3-44.9); Immature Granulocytes % 0.4 % (0-4); Lymphocytes # 0.8 K/mcL (0.6-4.6); Mean Corpuscular HGB Conc 33.2 g/dL (31.6-35.5); Mean Corpuscular Volume 96.6 fL (83.0-100.0); Mean Platelet Volume 10.7 fL (9.4-12.4); Monocytes # 0.7 K/mcL (0.0-1.3); Monocytes % 5.8 %; Neutrophils # 10.4 K/mcL (1.6-8.9); Platelet Count 207 K/mcL (140-400); Red Blood Count 4.06 M/mcL (3.82-4.97); Red Cell Distribution Width 15.7 % (11.5-14.5); Segmented Neutrophils % 86.4 %
[2022-06-14] MEDS: cefTRIAXone 1,000 MG in 0.9 % Sodium Chloride Mini Bag 100 ML IVPB SCH (09:34)
[2022-06-14] MEDS: Sennosides/Docusate Sodium TABLET PO SCH ×2 (09:34→20:16)
[2022-06-14 09:53] LABS: Albumin 4.1 g/dL (3.5-5.7); Albumin/Globulin Ratio 1.6 (1.1-2.2); Bilirubin,Direct 0.3 mg/dL (0.0-0.2); Bilirubin,Indirect 0.7 mg/dL (0.0-1.0); Calcium 9.5 mg/dL (8.6-10.3); Globulin 2.6 g/dL (2.4-3.5); Magnesium 1.8 mg/dL (1.6-2.6); Potassium 4.2 mEq/L (3.5-5.1); Total Protein 6.7 g/dL (6.4-8.9)
[2022-06-14] MEDS: Azithromycin 500 MG in 0.9 % Sodium Chloride 250 ML IVPB SCH (20:30)
[2022-06-14] MEDS: Melatonin 3 MG TABLET PO PRN (20:37)
[2022-06-15] MEDS: Ipratropium 1 PUFF INHALER IH SCH ×4 (03:32→22:25)
[2022-06-15 04:39] LABS: Basophils % 0.3 %; Hematocrit 39.5 % (35.3-44.9); Hemoglobin 13.1 g/dL (11.5-15.4); Immature Granulocytes % 0.5 % (0-4); Lymphocytes # 0.5 K/mcL (0.6-4.6); Lymphocytes % 7.5 %; Mean Corpuscular HGB Conc 33.2 g/dL (31.6-35.5); Mean Corpuscular Volume 96.3 fL (83.0-100.0); Mean Platelet Volume 10.6 fL (9.4-12.4); Monocytes # 0.3 K/mcL (0.0-1.3); Monocytes % 3.8 %; Neutrophils # 5.9 K/mcL (1.6-8.9); Platelet Count 201 K/mcL (140-400); Red Cell Distribution Width 15.8 % (11.5-14.5); Segmented Neutrophils % 87.9 %; White Blood Count 6.7 K/mcL (4.3-11.1)
[2022-06-15 05:00] LABS: Albumin 4.1 g/dL (3.5-5.7); Albumin/Globulin Ratio 1.6 (1.1-2.2); Bilirubin,Direct 0.4 mg/dL (0.0-0.2); Bilirubin,Indirect 0.5 mg/dL (0.0-1.0); Bilirubin,Total 0.9 mg/dL (0.3-1.0); Calcium 9.3 mg/dL (8.6-10.3); Globulin 2.6 g/dL (2.4-3.5); Magnesium 1.7 mg/dL (1.6-2.6); Total Protein 6.7 g/dL (6.4-8.9)
[2022-06-15] MEDS: *HR* Heparin 5,000 UNIT/ML VIAL SQ SCH ×3 (06:38→20:17)
[2022-06-15] MEDS: Remdesivir 100 MG in 0.9 % Sodium Chloride 100 ML IVPB SCH (07:58)
[2022-06-15] MEDS: Metoprolol XL (24 HR) Succ 25 MG TAB.ER.24H PO SCH (07:58)
[2022-06-15] MEDS: Aspirin Enteric Coated 81 MG Tablet PO SCH (07:58)
[2022-06-15] MEDS: Furosemide 40 MG/4 ML VIAL IVP SCH (07:59)
[2022-06-15] MEDS: Sennosides/Docusate Sodium TABLET PO SCH ×2 (07:59→20:18)
[2022-06-15] MEDS: Nystatin Cream 15 GM TUBE TP SCH ×3 (08:00→21:58)
[2022-06-15] MEDS: polyethylene glycoL 3350 17 GM POWD.PACK PO SCH (08:05)
[2022-06-15] MEDS: cefTRIAXone 1,000 MG in 0.9 % Sodium Chloride Mini Bag 100 ML IVPB SCH (09:55)
[2022-06-15] MEDS: *HR* HYDROcodone/Acet 5/325 mg TABLET PO PRN ×2 (11:11→16:15)
[2022-06-15] MEDS: Azithromycin 500 MG in 0.9 % Sodium Chloride 250 ML IVPB SCH (20:17)
[2022-06-15] MEDS: Melatonin 3 MG TABLET PO PRN (20:18)
[2022-06-16] MEDS: Ipratropium 1 PUFF INHALER IH SCH ×4 (04:33→21:56)
[2022-06-16] MEDS: *HR* Heparin 5,000 UNIT/ML VIAL SQ SCH ×3 (05:38→20:32)
[2022-06-16 08:31] LABS: Basophils % 0.1 %; Hematocrit 37.5 % (35.3-44.9); Hemoglobin 12.1 g/dL (11.5-15.4); Immature Granulocytes % 0.5 % (0-4); Lymphocytes # 0.9 K/mcL (0.6-4.6); Lymphocytes % 7.4 %; Mean Corpuscular HGB Conc 32.3 g/dL (31.6-35.5); Mean Corpuscular Hemoglobin 31.5 pg (28.0-33.3); Mean Corpuscular Volume 97.7 fL (83.0-100.0); Mean Platelet Volume 10.6 fL (9.4-12.4); Monocytes # 0.8 K/mcL (0.0-1.3); Monocytes % 6.9 %; Neutrophils # 9.9 K/mcL (1.6-8.9); Platelet Count 169 K/mcL (140-400); Red Blood Count 3.84 M/mcL (3.82-4.97); Segmented Neutrophils % 85.1 %
[2022-06-16 08:35] LABS: White Blood Count 11.6 K/mcL (4.3-11.1)
[2022-06-16] MEDS: cefTRIAXone 1,000 MG in 0.9 % Sodium Chloride Mini Bag 100 ML IVPB SCH (08:50)
[2022-06-16 08:51] LABS: Albumin 4.1 g/dL (3.5-5.7); Albumin/Globulin Ratio 1.6 (1.1-2.2); Bilirubin,Direct 0.3 mg/dL (0.0-0.2); Bilirubin,Indirect 0.5 mg/dL (0.0-1.0); Bilirubin,Total 0.8 mg/dL (0.3-1.0); Calcium 9.3 mg/dL (8.6-10.3); Globulin 2.5 g/dL (2.4-3.5); Potassium 3.9 mEq/L (3.5-5.1); Total Protein 6.6 g/dL (6.4-8.9)
[2022-06-16] MEDS: Metoprolol XL (24 HR) Succ 25 MG TAB.ER.24H PO SCH (08:53)
[2022-06-16] MEDS: Sennosides/Docusate Sodium TABLET PO SCH ×2 (08:54→20:28)
[2022-06-16] MEDS: Aspirin Enteric Coated 81 MG Tablet PO SCH (08:55)
[2022-06-16] MEDS ORDERED: Furosemide 40 MG/4 ML VIAL IVP SCH (09:00)
[2022-06-16] MEDS: polyethylene glycoL 3350 17 GM POWD.PACK PO SCH (09:13)
[2022-06-16] MEDS: Nystatin Cream 15 GM TUBE TP SCH ×3 (09:13→20:31)
[2022-06-16] MEDS: Remdesivir 100 MG in 0.9 % Sodium Chloride 100 ML IVPB SCH (10:03)
[2022-06-16] MEDS: Azithromycin 500 MG in 0.9 % Sodium Chloride 250 ML IVPB SCH (20:27)
[2022-06-17 02:39] LABS: Basophils % 0.1 %; Hematocrit 38.8 % (35.3-44.9); Hemoglobin 12.4 g/dL (11.5-15.4); Immature Granulocytes % 0.4 % (0-4); Lymphocytes # 0.7 K/mcL (0.6-4.6); Lymphocytes % 4.9 %; Mean Corpuscular Hemoglobin 31.3 pg (28.0-33.3); Mean Platelet Volume 10.7 fL (9.4-12.4); Monocytes # 0.9 K/mcL (0.0-1.3); Monocytes % 6.8 %; Neutrophils # 11.7 K/mcL (1.6-8.9); Platelet Count 178 K/mcL (140-400); Red Blood Count 3.96 M/mcL (3.82-4.97); Segmented Neutrophils % 87.8 %; White Blood Count 13.4 K/mcL (4.3-11.1)
[2022-06-17 02:58] LABS: Albumin 4.2 g/dL (3.5-5.7); Albumin/Globulin Ratio 1.5 (1.1-2.2); Bilirubin,Direct 0.3 mg/dL (0.0-0.2); Bilirubin,Indirect 0.4 mg/dL (0.0-1.0); Bilirubin,Total 0.7 mg/dL (0.3-1.0); Calcium 9.2 mg/dL (8.6-10.3); Globulin 2.8 g/dL (2.4-3.5); Potassium 3.8 mEq/L (3.5-5.1)
[2022-06-17] MEDS: Ipratropium 1 PUFF INHALER IH SCH ×4 (03:38→21:22)
[2022-06-17] MEDS: *HR* Heparin 5,000 UNIT/ML VIAL SQ SCH ×3 (06:30→20:30)
[2022-06-17] MEDS ORDERED: dexAMETHasone 4 MG TABLET PO SCH (09:00)
[2022-06-17] MEDS: polyethylene glycoL 3350 17 GM POWD.PACK PO SCH (09:16)
[2022-06-17] MEDS: cefTRIAXone 1,000 MG in 0.9 % Sodium Chloride Mini Bag 100 ML IVPB SCH (09:24)
[2022-06-17] MEDS: Sennosides/Docusate Sodium TABLET PO SCH ×2 (09:51→20:30)
[2022-06-17] MEDS: Metoprolol XL (24 HR) Succ 25 MG TAB.ER.24H PO SCH (09:51)
[2022-06-17] MEDS: Aspirin Enteric Coated 81 MG Tablet PO SCH (09:54)
[2022-06-17] MEDS: Nystatin Cream 15 GM TUBE TP SCH ×3 (09:59→20:31)
[2022-06-17] MEDS: Remdesivir 100 MG in 0.9 % Sodium Chloride 100 ML IVPB SCH (10:00)
[2022-06-17] MEDS: Melatonin 3 MG TABLET PO PRN (20:30)
[2022-06-17] MEDS: Azithromycin 500 MG in 0.9 % Sodium Chloride 250 ML IVPB SCH (20:31)
[2022-06-18] MEDS: Ipratropium 1 PUFF INHALER IH SCH ×4 (04:17→21:49)
[2022-06-18] MEDS: *HR* Heparin 5,000 UNIT/ML VIAL SQ SCH ×3 (06:37→21:02)
[2022-06-18 08:21] LABS: Potassium 3.5 mEq/L (3.5-5.1)
[2022-06-18 08:22] LABS: Albumin/Globulin Ratio 1.7 (1.1-2.2); Bilirubin,Direct 0.4 mg/dL (0.0-0.2); Bilirubin,Indirect 0.4 mg/dL (0.0-1.0); Bilirubin,Total 0.8 mg/dL (0.3-1.0); Globulin 2.3 g/dL (2.4-3.5); Total Protein 6.3 g/dL (6.4-8.9)
[2022-06-18 08:31] LABS: Basophils % 0.1 %; Eosinophils % 0.3 %; Hematocrit 38.2 % (35.3-44.9); Hemoglobin 12.4 g/dL (11.5-15.4); Immature Granulocytes % 0.6 % (0-4); Lymphocytes # 0.8 K/mcL (0.6-4.6); Lymphocytes % 6.7 %; Mean Corpuscular HGB Conc 32.5 g/dL (31.6-35.5); Mean Corpuscular Hemoglobin 31.5 pg (28.0-33.3); Mean Platelet Volume 10.7 fL (9.4-12.4); Monocytes # 0.8 K/mcL (0.0-1.3); Monocytes % 6.4 %; Neutrophils # 10.8 K/mcL (1.6-8.9); Platelet Count 150 K/mcL (140-400); Red Blood Count 3.94 M/mcL (3.82-4.97); Red Cell Distribution Width 15.9 % (11.5-14.5); Segmented Neutrophils % 85.9 %; White Blood Count 12.6 K/mcL (4.3-11.1)
[2022-06-18] MEDS ORDERED: dexAMETHasone 4 MG TABLET PO SCH (09:00)
[2022-06-18] MEDS: Metoprolol XL (24 HR) Succ 25 MG TAB.ER.24H PO SCH (09:04)
[2022-06-18] MEDS: Aspirin Enteric Coated 81 MG Tablet PO SCH (09:04)
[2022-06-18] MEDS: Sennosides/Docusate Sodium TABLET PO SCH ×2 (09:06→21:01)
[2022-06-18] MEDS: Nystatin Cream 15 GM TUBE TP SCH ×3 (09:08→21:01)
[2022-06-18] MEDS: polyethylene glycoL 3350 17 GM POWD.PACK PO SCH (09:08)
[2022-06-18] MEDS: cefTRIAXone 1,000 MG in 0.9 % Sodium Chloride Mini Bag 100 ML IVPB SCH (09:09)
[2022-06-18] MEDS: Furosemide 20 MG TABLET PO SCH (18:07)
[2022-06-18] MEDS ORDERED: Haloperidol Lactate 5 MG/ML VIAL IVP ONE (23:24)
[2022-06-19] MEDS: Ipratropium 1 PUFF INHALER IH SCH ×4 (03:31→21:16)
[2022-06-19] MEDS: polyethylene glycoL 3350 17 GM POWD.PACK PO SCH (07:31)
[2022-06-19] MEDS: Aspirin Enteric Coated 81 MG Tablet PO SCH (07:32)
[2022-06-19] MEDS: Sennosides/Docusate Sodium TABLET PO SCH ×2 (07:32→22:18)
[2022-06-19] MEDS: Furosemide 20 MG TABLET PO SCH ×2 (07:32→16:24)
[2022-06-19] MEDS: Nystatin Cream 15 GM TUBE TP SCH ×3 (07:33→22:18)
[2022-06-19] MEDS: Metoprolol XL (24 HR) Succ 25 MG TAB.ER.24H PO SCH (07:33)
[2022-06-19] MEDS: *HR* Heparin 5,000 UNIT/ML VIAL SQ SCH ×3 (07:34→22:18)
[2022-06-19 10:25] LABS: Basophils % 0.2 %; Eosinophils % 0.3 %; Hematocrit 42.1 % (35.3-44.9); Hemoglobin 13.8 g/dL (11.5-15.4); Immature Granulocytes % 0.5 % (0-4); Lymphocytes # 0.5 K/mcL (0.6-4.6); Lymphocytes % 4.1 %; Mean Corpuscular HGB Conc 32.8 g/dL (31.6-35.5); Mean Corpuscular Hemoglobin 31.7 pg (28.0-33.3); Mean Corpuscular Volume 96.6 fL (83.0-100.0); Mean Platelet Volume 10.6 fL (9.4-12.4); Monocytes # 0.7 K/mcL (0.0-1.3); Monocytes % 5.6 %; Neutrophils # 11.7 K/mcL (1.6-8.9); Platelet Count 154 K/mcL (140-400); Red Blood Count 4.36 M/mcL (3.82-4.97); Segmented Neutrophils % 89.3 %; White Blood Count 13.1 K/mcL (4.3-11.1)
[2022-06-19 10:40] LABS: Calcium 8.8 mg/dL (8.6-10.3); Potassium 3.5 mEq/L (3.5-5.1)
[2022-06-20] MEDS: Ipratropium 1 PUFF INHALER IH SCH ×4 (03:40→20:49)
[2022-06-20] MEDS: *HR* Heparin 5,000 UNIT/ML VIAL SQ SCH ×3 (06:28→22:16)
[2022-06-20] MEDS: Furosemide 20 MG TABLET PO SCH ×2 (06:28→19:03)
[2022-06-20] MEDS: Metoprolol XL (24 HR) Succ 25 MG TAB.ER.24H PO SCH (09:57)
[2022-06-20] MEDS: Sennosides/Docusate Sodium TABLET PO SCH ×2 (09:58→22:15)
[2022-06-20] MEDS: Nystatin Cream 15 GM TUBE TP SCH ×3 (09:59→22:42)
[2022-06-20] MEDS: Aspirin Enteric Coated 81 MG Tablet PO SCH (09:59)
[2022-06-20] MEDS: polyethylene glycoL 3350 17 GM POWD.PACK PO SCH (10:00)
[2022-06-21] MEDS: Magic Mouthwash 10 ML UD Cup PO SCH ×3 (03:21→16:36)
[2022-06-21] MEDS: Ipratropium 1 PUFF INHALER IH SCH ×4 (04:10→22:11)
[2022-06-21] MEDS: Furosemide 20 MG TABLET PO SCH ×2 (05:41→18:06)
[2022-06-21] MEDS: *HR* Heparin 5,000 UNIT/ML VIAL SQ SCH ×4 (05:42→21:21)
[2022-06-21] MEDS: Aspirin Enteric Coated 81 MG Tablet PO SCH (10:11)
[2022-06-21] MEDS: Nystatin Cream 15 GM TUBE TP SCH ×3 (10:12→21:09)
[2022-06-21] MEDS: Metoprolol XL (24 HR) Succ 25 MG TAB.ER.24H PO SCH (10:12)
[2022-06-21] MEDS: polyethylene glycoL 3350 17 GM POWD.PACK PO SCH (10:12)
[2022-06-21] MEDS: Sennosides/Docusate Sodium TABLET PO SCH ×2 (10:12→21:08)
[2022-06-22] MEDS: Ipratropium 1 PUFF INHALER IH SCH ×3 (04:02→15:49)
[2022-06-22] MEDS: Furosemide 20 MG TABLET PO SCH ×2 (06:51→15:16)
[2022-06-22] MEDS: *HR* Heparin 5,000 UNIT/ML VIAL SQ SCH ×3 (06:53→21:59)
[2022-06-22] MEDS: Magic Mouthwash 10 ML UD Cup PO SCH ×3 (06:54→18:38)
[2022-06-22] MEDS: Aspirin Enteric Coated 81 MG Tablet PO SCH (10:22)
[2022-06-22] MEDS: Metoprolol XL (24 HR) Succ 25 MG TAB.ER.24H PO SCH (10:23)
[2022-06-22] MEDS: Nystatin Cream 15 GM TUBE TP SCH ×3 (10:23→21:59)
[2022-06-22] MEDS: polyethylene glycoL 3350 17 GM POWD.PACK PO SCH (10:23)
[2022-06-22] MEDS: Sennosides/Docusate Sodium TABLET PO SCH ×2 (10:23→21:56)
[2022-06-22] MEDS: Melatonin 3 MG TABLET PO PRN (22:00)
[2022-06-23] MEDS: Ipratropium 1 PUFF INHALER IH SCH ×5 (00:30→23:04)
[2022-06-23] MEDS: Furosemide 20 MG TABLET PO SCH ×2 (07:11→13:55)
[2022-06-23] MEDS: *HR* Heparin 5,000 UNIT/ML VIAL SQ SCH ×3 (07:11→21:15)
[2022-06-23] MEDS: Magic Mouthwash 10 ML UD Cup PO SCH ×3 (07:13→16:17)
[2022-06-23] MEDS: polyethylene glycoL 3350 17 GM POWD.PACK PO SCH (09:12)
[2022-06-23] MEDS: Aspirin Enteric Coated 81 MG Tablet PO SCH (09:13)
[2022-06-23] MEDS: Metoprolol XL (24 HR) Succ 25 MG TAB.ER.24H PO SCH (09:14)
[2022-06-23] MEDS: Nystatin Cream 15 GM TUBE TP SCH ×3 (09:14→21:15)
[2022-06-23] MEDS: Sennosides/Docusate Sodium TABLET PO SCH ×2 (09:14→21:15)
[2022-06-24] MEDS ORDERED: Sennosides 8.6 MG TABLET PO ONE (02:52)
[2022-06-24] MEDS: Ipratropium 1 PUFF INHALER IH SCH ×4 (03:53→21:58)
[2022-06-24] MEDS: Furosemide 20 MG TABLET PO SCH ×3 (05:12→17:03)
[2022-06-24] MEDS: *HR* Heparin 5,000 UNIT/ML VIAL SQ SCH ×3 (05:14→19:56)
[2022-06-24] MEDS: Sennosides/Docusate Sodium TABLET PO SCH ×2 (09:07→19:53)
[2022-06-24] MEDS: Magic Mouthwash 10 ML UD Cup PO SCH ×3 (09:07→18:00)
[2022-06-24] MEDS: polyethylene glycoL 3350 17 GM POWD.PACK PO SCH (09:07)
[2022-06-24] MEDS: Aspirin Enteric Coated 81 MG Tablet PO SCH (09:07)
[2022-06-24] MEDS: Nystatin Cream 15 GM TUBE TP SCH ×3 (09:07→19:55)
[2022-06-24] MEDS: Metoprolol XL (24 HR) Succ 25 MG TAB.ER.24H PO SCH (09:07)
[2022-06-25] MEDS: Ipratropium 1 PUFF INHALER IH SCH ×4 (04:04→22:10)
[2022-06-25] MEDS: *HR* Heparin 5,000 UNIT/ML VIAL SQ SCH ×3 (06:40→21:32)
[2022-06-25] MEDS: Furosemide 20 MG TABLET PO SCH ×2 (06:40→16:53)
[2022-06-25] MEDS: Magic Mouthwash 10 ML UD Cup PO SCH ×3 (07:30→18:05)
[2022-06-25] MEDS: Metoprolol XL (24 HR) Succ 25 MG TAB.ER.24H PO SCH (10:14)
[2022-06-25] MEDS: Aspirin Enteric Coated 81 MG Tablet PO SCH (10:14)
[2022-06-25] MEDS: Sennosides/Docusate Sodium TABLET PO SCH ×2 (10:14→21:32)
[2022-06-25] MEDS: Nystatin SUSP 5 ML UD.LIQ PO SCH ×4 (10:14→21:32)
[2022-06-25] MEDS: polyethylene glycoL 3350 17 GM POWD.PACK PO SCH (10:15)
[2022-06-25] MEDS: Nystatin Cream 15 GM TUBE TP SCH ×3 (10:15→21:32)
[2022-06-26] MEDS: Ipratropium 1 PUFF INHALER IH SCH ×4 (04:01→20:42)
[2022-06-26] MEDS ORDERED: *HR* LORazepam 2 MG/ML VIAL IVP ONE ×2 (05:41→06:48)
[2022-06-26] MEDS: Furosemide 20 MG TABLET PO SCH ×2 (06:19→13:44)
[2022-06-26] MEDS: *HR* Heparin 5,000 UNIT/ML VIAL SQ SCH ×3 (06:19→21:07)
[2022-06-26] MEDS: polyethylene glycoL 3350 17 GM POWD.PACK PO SCH (10:43)
[2022-06-26] MEDS: Magic Mouthwash 10 ML UD Cup PO SCH ×3 (10:43→17:17)
[2022-06-26] MEDS: Aspirin Enteric Coated 81 MG Tablet PO SCH (10:43)
[2022-06-26] MEDS: Nystatin Cream 15 GM TUBE TP SCH ×3 (10:44→21:07)
[2022-06-26] MEDS: Nystatin SUSP 5 ML UD.LIQ PO SCH ×4 (10:44→21:07)
[2022-06-26] MEDS: Sennosides/Docusate Sodium TABLET PO SCH ×2 (10:44→21:07)
[2022-06-26] MEDS: Metoprolol XL (24 HR) Succ 25 MG TAB.ER.24H PO SCH (10:44)
[2022-06-27] MEDS ORDERED: *HR* LORazepam 2 MG/ML VIAL IVP ONE (01:34)
[2022-06-27] MEDS ORDERED: *HR* LORazepam 2 MG/ML VIAL IM STA ×2 (01:48→07:54)
[2022-06-27] MEDS: Ipratropium 1 PUFF INHALER IH SCH ×4 (03:54→22:50)
[2022-06-27] MEDS: Furosemide 20 MG TABLET PO SCH ×2 (04:20→13:26)
[2022-06-27] MEDS: *HR* Heparin 5,000 UNIT/ML VIAL SQ SCH ×3 (04:20→21:49)
[2022-06-27] MEDS: Magic Mouthwash 10 ML UD Cup PO SCH ×3 (07:49→15:45)
[2022-06-27] MEDS: Metoprolol XL (24 HR) Succ 25 MG TAB.ER.24H PO SCH (08:08)
[2022-06-27] MEDS: Nystatin SUSP 5 ML UD.LIQ PO SCH ×4 (08:08→21:44)
[2022-06-27] MEDS: polyethylene glycoL 3350 17 GM POWD.PACK PO SCH (08:08)
[2022-06-27] MEDS: Sennosides/Docusate Sodium TABLET PO SCH ×2 (08:08→21:44)
[2022-06-27] MEDS: Aspirin Enteric Coated 81 MG Tablet PO SCH (08:08)
[2022-06-27] MEDS: Nystatin Cream 15 GM TUBE TP SCH ×3 (08:08→21:44)
[2022-06-27 16:07] LABS: Basophils # 0.1 K/mcL (0.0-0.2); Basophils % 0.4 %; Eosinophils % 0.3 %; Hemoglobin 13.7 g/dL (11.5-15.4); Immature Granulocytes % 0.4 % (0-4); Lymphocytes # 1.3 K/mcL (0.6-4.6); Lymphocytes % 11.1 %; Mean Corpuscular HGB Conc 31.9 g/dL (31.6-35.5); Mean Corpuscular Hemoglobin 31.1 pg (28.0-33.3); Mean Corpuscular Volume 97.7 fL (83.0-100.0); Mean Platelet Volume 10.2 fL (9.4-12.4); Monocytes # 0.8 K/mcL (0.0-1.3); Monocytes % 6.6 %; Neutrophils # 9.4 K/mcL (1.6-8.9); Platelet Count 169 K/mcL (140-400); Red Cell Distribution Width 15.8 % (11.5-14.5); Segmented Neutrophils % 81.2 %; White Blood Count 11.6 K/mcL (4.3-11.1)
[2022-06-27 16:26] LABS: Magnesium 2.3 mg/dL (1.6-2.6); Potassium 3.8 mEq/L (3.5-5.1)
[2022-06-28] MEDS: Ipratropium 1 PUFF INHALER IH SCH ×2 (03:40→09:31)
[2022-06-28] MEDS: *HR* Heparin 5,000 UNIT/ML VIAL SQ SCH ×3 (06:52→21:26)
[2022-06-28] MEDS: Furosemide 20 MG TABLET PO SCH ×3 (06:52→15:32)
[2022-06-28] MEDS: Magic Mouthwash 10 ML UD Cup PO SCH ×3 (08:38→16:51)
[2022-06-28] MEDS: Nystatin Cream 15 GM TUBE TP SCH ×3 (08:40→19:58)
[2022-06-28] MEDS: polyethylene glycoL 3350 17 GM POWD.PACK PO SCH (08:40)
[2022-06-28] MEDS: Sennosides/Docusate Sodium TABLET PO SCH ×2 (08:41→19:57)
[2022-06-28] MEDS: Aspirin Enteric Coated 81 MG Tablet PO SCH (08:42)
[2022-06-28] MEDS: Metoprolol XL (24 HR) Succ 25 MG TAB.ER.24H PO SCH (08:42)
[2022-06-28] MEDS: Nystatin SUSP 5 ML UD.LIQ PO SCH ×4 (08:46→19:58)
[2022-06-28] MEDS: Ipratropium/Albuterol Neb 3 ML IH SCH ×2 (15:02→21:13)
[2022-06-28] MEDS: Melatonin 3 MG TABLET PO PRN (21:26)
[2022-06-29] MEDS: *HR* HYDROcodone/Acet 5/325 mg TABLET PO PRN ×2 (01:57→16:19)
[2022-06-29] MEDS: Ipratropium/Albuterol Neb 3 ML IH SCH ×4 (04:01→21:11)
[2022-06-29] MEDS: *HR* Heparin 5,000 UNIT/ML VIAL SQ SCH ×3 (05:52→23:57)
[2022-06-29] MEDS: Furosemide 20 MG TABLET PO SCH ×2 (05:53→13:46)
[2022-06-29] MEDS: Aspirin Enteric Coated 81 MG Tablet PO SCH (08:40)
[2022-06-29] MEDS: Metoprolol XL (24 HR) Succ 25 MG TAB.ER.24H PO SCH (08:40)
[2022-06-29] MEDS: Nystatin Cream 15 GM TUBE TP SCH ×3 (08:41→19:57)
[2022-06-29] MEDS: Magic Mouthwash 10 ML UD Cup PO SCH ×4 (08:41→16:27)
[2022-06-29] MEDS: polyethylene glycoL 3350 17 GM POWD.PACK PO SCH (08:41)
[2022-06-29] MEDS: Nystatin SUSP 5 ML UD.LIQ PO SCH ×4 (08:42→19:57)
[2022-06-29] MEDS: Sennosides/Docusate Sodium TABLET PO SCH ×2 (08:42→19:57)
[2022-06-29] MEDS ORDERED: Haloperidol Lactate 5 MG/ML VIAL IM ONE (12:59)
[2022-06-29] MEDS ORDERED: *HR* LORazepam 2 MG/ML VIAL IVP ONE (16:13)
[2022-06-29] MEDS: QUEtiapine Fumarate 25 MG TABLET PO SCH (19:56)
[2022-06-29] MEDS: Melatonin 3 MG TABLET PO PRN (19:57)
[2022-06-30] MEDS ORDERED: *HR* LORazepam 2 MG/ML VIAL IVP ONE (00:23)
[2022-06-30] MEDS: Ipratropium/Albuterol Neb 3 ML IH SCH ×4 (04:07→20:24)
[2022-06-30] MEDS: *HR* Heparin 5,000 UNIT/ML VIAL SQ SCH ×3 (06:03→22:13)
[2022-06-30] MEDS: Furosemide 20 MG TABLET PO SCH (06:24)
[2022-06-30] MEDS ORDERED: Furosemide 20 MG/2 ML VIAL IVP ONE ×2 (06:42→07:40)
[2022-06-30] MEDS: Aspirin Enteric Coated 81 MG Tablet PO SCH (07:27)
[2022-06-30] MEDS: Metoprolol XL (24 HR) Succ 25 MG TAB.ER.24H PO SCH (07:27)
[2022-06-30] MEDS: Sennosides/Docusate Sodium TABLET PO SCH ×2 (07:27→22:05)
[2022-06-30] MEDS: Nystatin Cream 15 GM TUBE TP SCH ×3 (07:28→22:13)
[2022-06-30] MEDS: Nystatin SUSP 5 ML UD.LIQ PO SCH ×4 (07:40→22:04)
[2022-06-30] MEDS: polyethylene glycoL 3350 17 GM POWD.PACK PO SCH (07:41)
[2022-06-30] MEDS: Magic Mouthwash 10 ML UD Cup PO SCH ×3 (07:41→17:06)
[2022-06-30 07:51] LABS: ABG Base Excess 11 mEq/L (-2 to 3); ABG HCO3 39 mEq/L (21-27); ABG Oxygen Saturation 99 % (95-98); ABG PCO2 63 mmHg (35-45); ABG PO2 137 mmHg (85-104); ABG TCO2 41 mEq/L (20-26)
[2022-06-30 09:15] LABS: Bilirubin,Urine Negative (Negative); Blood,Urine Trace (Negative); Clarity,Urine Clear (Clear); Color,Urine Light-Yellow (Yellow); Glucose,Urine (UA) Normal (Normal); Hyaline Casts,Urine Few per lpf (None Seen); Ketones,Urine Negative (Negative); Leukocyte Esterase,Urine Negative (Negative); Mucus,Urine Few per lpf (None-Few); Nitrite,Urine Negative (Negative); Protein,Urine 30 mg/dL (Neg-Trace); RBC,Urine 0-3 per hpf (0-3); Specific Gravity,Urine 1.012 (1.010-1.025); Urobilinogen,Urine Normal (Normal); WBC,Urine 0-3 per hpf (0-3)
[2022-06-30] MEDS: Furosemide 20 MG/2 ML VIAL IVP SCH ×2 (18:56→22:11)
[2022-06-30] MEDS: QUEtiapine Fumarate 25 MG TABLET PO SCH (22:06)
[2022-07-01] MEDS: Ipratropium/Albuterol Neb 3 ML IH SCH ×4 (03:38→22:59)
[2022-07-01] MEDS: *HR* Heparin 5,000 UNIT/ML VIAL SQ SCH ×3 (06:54→21:11)
[2022-07-01 07:57] LABS: ABG Base Excess 19 mEq/L (-2 to 3); ABG HCO3 45 mEq/L (21-27); ABG Oxygen Saturation 98 % (95-98); ABG PCO2 56 mmHg (35-45); ABG PH 7.51 pH Units (7.32-7.45); ABG PO2 102 mmHg (85-104); ABG TCO2 47 mEq/L (20-26); Blood Gas VT 400 cc
[2022-07-01] MEDS: Furosemide 20 MG/2 ML VIAL IVP SCH ×2 (08:05→21:10)
[2022-07-01 09:49] LABS: Hemoglobin 13.4 g/dL (11.5-15.4); Mean Corpuscular HGB Conc 31.2 g/dL (31.6-35.5); Mean Corpuscular Hemoglobin 30.5 pg (28.0-33.3); Mean Corpuscular Volume 97.9 fL (83.0-100.0); Mean Platelet Volume 10.4 fL (9.4-12.4); Platelet Count 148 K/mcL (140-400); Red Blood Count 4.39 M/mcL (3.82-4.97); Red Cell Distribution Width 15.7 % (11.5-14.5); White Blood Count 11.5 K/mcL (4.3-11.1)
[2022-07-01 10:01] LABS: Calcium 8.7 mg/dL (8.6-10.3); Potassium 3.1 mEq/L (3.5-5.1)
[2022-07-01] MEDS: Metoprolol XL (24 HR) Succ 25 MG TAB.ER.24H PO SCH (10:02)
[2022-07-01] MEDS: Nystatin SUSP 5 ML UD.LIQ PO SCH ×4 (10:02→21:11)
[2022-07-01] MEDS: polyethylene glycoL 3350 17 GM POWD.PACK PO SCH (10:03)
[2022-07-01] MEDS: Sennosides/Docusate Sodium TABLET PO SCH ×2 (10:03→21:11)
[2022-07-01] MEDS: Nystatin Cream 15 GM TUBE TP SCH ×3 (10:03→21:11)
[2022-07-01] MEDS: Aspirin Enteric Coated 81 MG Tablet PO SCH (10:03)
[2022-07-01] MEDS: Magic Mouthwash 10 ML UD Cup PO SCH ×3 (10:04→17:13)
[2022-07-01] MEDS: QUEtiapine Fumarate 25 MG TABLET PO SCH (21:12)
[2022-07-02 02:56] LABS: Basophils % 0.2 %; Eosinophils % 0.4 %; Hematocrit 40.2 % (35.3-44.9); Immature Granulocytes % 0.2 % (0-4); Lymphocytes # 1.1 K/mcL (0.6-4.6); Lymphocytes % 11.7 %; Mean Corpuscular HGB Conc 32.3 g/dL (31.6-35.5); Mean Corpuscular Hemoglobin 31.4 pg (28.0-33.3); Mean Corpuscular Volume 97.1 fL (83.0-100.0); Mean Platelet Volume 10.5 fL (9.4-12.4); Monocytes # 0.5 K/mcL (0.0-1.3); Monocytes % 5.5 %; Neutrophils # 7.3 K/mcL (1.6-8.9); Platelet Count 166 K/mcL (140-400); Red Blood Count 4.14 M/mcL (3.82-4.97); Red Cell Distribution Width 15.7 % (11.5-14.5)
[2022-07-02 03:10] LABS: Calcium 8.8 mg/dL (8.6-10.3); Potassium 2.9 mEq/L (3.5-5.1)
[2022-07-02] MEDS: Ipratropium/Albuterol Neb 3 ML IH SCH ×4 (03:54→20:02)
[2022-07-02] MEDS: *HR* Heparin 5,000 UNIT/ML VIAL SQ SCH ×3 (06:04→20:49)
[2022-07-02] MEDS: Furosemide 20 MG/2 ML VIAL IVP SCH ×2 (09:28→20:44)
[2022-07-02] MEDS: Metoprolol XL (24 HR) Succ 25 MG TAB.ER.24H PO SCH (09:29)
[2022-07-02] MEDS: polyethylene glycoL 3350 17 GM POWD.PACK PO SCH (09:30)
[2022-07-02] MEDS: Nystatin Cream 15 GM TUBE TP SCH ×3 (09:30→20:52)
[2022-07-02] MEDS: Nystatin SUSP 5 ML UD.LIQ PO SCH ×4 (09:30→20:54)
[2022-07-02] MEDS: Sennosides/Docusate Sodium TABLET PO SCH ×2 (09:37→20:49)
[2022-07-02] MEDS: Magic Mouthwash 10 ML UD Cup PO SCH ×3 (09:37→15:15)
[2022-07-02] MEDS: Aspirin Enteric Coated 81 MG Tablet PO SCH (09:42)
[2022-07-02] MEDS: Melatonin 3 MG TABLET PO PRN (20:43)
[2022-07-02] MEDS: QUEtiapine Fumarate 25 MG TABLET PO SCH (20:43)
[2022-07-03] MEDS: Ipratropium/Albuterol Neb 3 ML IH SCH (03:46)
[2022-07-03] MEDS: *HR* Heparin 5,000 UNIT/ML VIAL SQ SCH ×3 (06:06→20:42)
[2022-07-03 06:46] LABS: Calcium 8.8 mg/dL (8.6-10.3); Magnesium 1.9 mg/dL (1.6-2.6)
[2022-07-03] MEDS ORDERED: Ipratropium/Albuterol Neb 3 ML IH PRN (08:01)
[2022-07-03] MEDS: Magic Mouthwash 10 ML UD Cup PO SCH ×3 (08:04→16:43)
[2022-07-03] MEDS: Aspirin Enteric Coated 81 MG Tablet PO SCH (08:05)
[2022-07-03] MEDS: Metoprolol XL (24 HR) Succ 25 MG TAB.ER.24H PO SCH (08:05)
[2022-07-03] MEDS: Sennosides/Docusate Sodium TABLET PO SCH ×2 (08:06→20:42)
[2022-07-03] MEDS: Furosemide 20 MG/2 ML VIAL IVP SCH (08:06)
[2022-07-03] MEDS: Nystatin SUSP 5 ML UD.LIQ PO SCH ×4 (08:07→20:41)
[2022-07-03] MEDS: Nystatin Cream 15 GM TUBE TP SCH ×3 (08:08→20:41)
[2022-07-03] MEDS: polyethylene glycoL 3350 17 GM POWD.PACK PO SCH (08:08)
[2022-07-03] MEDS: Furosemide 20 MG TABLET PO SCH (16:43)
[2022-07-03] MEDS: QUEtiapine Fumarate 25 MG TABLET PO SCH (20:42)
[2022-07-04] MEDS: *HR* Heparin 5,000 UNIT/ML VIAL SQ SCH ×2 (05:38→14:13)
[2022-07-04] MEDS: polyethylene glycoL 3350 17 GM POWD.PACK PO SCH (09:11)
[2022-07-04] MEDS: Aspirin Enteric Coated 81 MG Tablet PO SCH (09:11)
[2022-07-04] MEDS: Sennosides/Docusate Sodium TABLET PO SCH (09:11)
[2022-07-04] MEDS: Furosemide 20 MG TABLET PO SCH (09:11)
[2022-07-04] MEDS: Magic Mouthwash 10 ML UD Cup PO SCH ×2 (09:11→10:18)
[2022-07-04] MEDS: Nystatin SUSP 5 ML UD.LIQ PO SCH ×2 (09:11→10:18)
[2022-07-04] MEDS: Metoprolol XL (24 HR) Succ 25 MG TAB.ER.24H PO SCH (09:11)
[2022-07-04] MEDS: Nystatin Cream 15 GM TUBE TP SCH ×2 (09:11→14:31)
[2022-07-04 10:46] VITALS: BP 98/68; PULSE 65; TEMP 97.9; O2SAT 98
== END 2022-07-04 17:32 | DRG 280 ==
LOC: EMEROOARM 13:48 → 2ANU 13:48 → SUATTDRO 17:20 → 2ANU 18:07 → SUATTDRO 06-07 13:41 → 2ANU 06-13 08:43
PROVIDERS: ADMIT Internal Medicine; ATTEND Internal Medicine